=== PATIENT | female | born 1985 | race African-American/Black ===

== ENCOUNTER 2022-07-08 15:56 | Emergency (ER) | payer MEDICAID, OTHER ==
[~2022-07-08] VITALS: Ht 175.3 cm; Wt 138.0 kg
[2022-07-08 16:00] VITALS: BP 159/108
== END 2022-07-08 22:35 | disposition left against medical advice (07) ==
LOC: ER 15:56
DX: Z53.21 Procedure and treatment not carried out due to patient leaving prior to being seen by health care provider (principal)